=== PATIENT | female | born 1940 | race Caucasian/White ===

== ENCOUNTER 2016-05-10 11:37 | Emergency (ER) | payer BC ==
[2016-05-10 11:45] VITALS: TEMP 97.9
--- NOTE | 2016-05-10 13:05 | EDPHY ---
H & P Stated Complaint: Fell yesterday in [place]. Left foot swelling and painful. Time Seen by Provider: 05/10/16 12:11 HPI/ROS: CHIEF COMPLAINT: Left foot pain, mild head injury, syncope HISTORY OF PRESENT ILLNESS: The patient presents to the ED with complaints of acute left foot pain after she fell yesterday after a syncopal event. The patient did strike her head sustaining a small bruise to the lateral aspect of her left eye. She complains only of left foot pain today and specifically denies headache, neurologic complaints, visual complaints or neck pain. The patient is not anticoagulated. She has had some pain with ambulation. The patient denies additional injury. REVIEW OF SYSTEMS: A comprehensive 10 point review of systems is otherwise negative aside from elements mentioned in the history of present illness. Source: Patient Exam Limitations: No limitations - Personal History Current Tetanus Diphtheria and Acellular Pertussis (TDAP): Yes Tetanus Vaccine Date: 2013 - Medical/Surgical History Hx Asthma: No Hx Chronic Respiratory Disease: No Hx Diabetes: No Hx Cardiac Disease: Yes Hx Renal Disease: No Hx Cirrhosis: No Hx Alcoholism: No Hx HIV/AIDS: No Hx Splenectomy or Spleen Trauma: No Other PMH: parkinson's, HTN, irregular heart beat - Social History Smoking Status: Never smoked - Physical Exam Exam: General Appearance: Alert, no distress Head: Superficial bruising noted along the lateral aspect of the left eyelid Eyes: Pupils equal, round, reactive ENT, Mouth: No hemotympanum, no oral trauma Neck: Nontender, trachea midline Respiratory: No chest wall tender, subcutaneous air, lungs clear bilaterally Cardiovascular: Regular rate and rhythm Abdomen: Abdomen is soft and nontender, pelvis stable Skin: No lacerations, No abrasion Back: No midline T/L/S pain Extremities: Tenderness to palpation, soft tissue swelling along the midfoot Neurological: A&Ox3, normal motor function, normal sensory exam Constitutional: Initial Vital Signs Temperature (C) 36.6 C 05/10/16 11:41 Heart Rate 62 05/10/16 11:41 Respiratory Rate 17 05/10/16 11:41 Blood Pressure 154/86 H 05/10/16 11:41 O2 Sat (%) 97 05/10/16 11:41 O2 Delivery Mode Room Air Allergies/Adverse Reactions: No Known Allergies Allergy (Unverified 11/10/11 17:14) Home Medications: Medication Instructions Recorded Triamterene [Dyrenium] 100 mg PO DAILY 09/07/11 Bisacodyl [Dulcolax] 5 - 15 mg PO DAILY 11/10/11 Calcium Carbonate [Oyster Shell 500 mg PO DAILY 11/10/11 Calcium 500 mg (*)] Cholecalciferol Vit D3 [Vitamin D3 2,000 units PO DAILY 11/10/11 2000 units] Sertraline HCl [Zoloft 100mg (*)] 100 mg PO DAILY 11/10/11 Aspirin [Aspirin 81mg (OTC)] 81 mg PO DAILY #100 tab 11/12/11 Medical Decision Making - Diagnostics EKG Interpretation: EKG: Complete interpretation has been separately recorded in the [facility] archive. Summary impression: Sinus rhythm Imaging: Foot x-ray: ED Course/Re-evaluation: The patient presents to the ED primarily for evaluation of a left foot injury. She is noted to have fractures at the base of the 2nd and 3rd metatarsal which are nondisplaced. Patient did have some mild bruising to the lateral aspect of her left eyelid however has a normal GCS and no complaints of headache, neck pain or acute neurologic complaints. The patient did not require a CT scan of her head based upon clinical presentation. The patient did experience a syncopal episode yesterday which sounds to be vasovagal in nature. Given the patient's history of syncope, an EKG was performed in the ED which demonstrates a normal sinus rhythm. The patient will be placed in a Kidd boot and given crutches. She is referred to the look out tower fire watcher at [facility] for further evaluation. Differential Diagnosis: Differential diagnosis considered includes fracture, sprain, dislocation, arrhythmia, vasovagal episode, intracranial hemorrhage Departure - Departure Disposition: Home, Routine, Self-Care Clinical Impression: Fractured metatarsal bone Qualifiers: Encounter type: initial encounter Metatarsal bone: third Fracture type: closed Fracture alignment: nondisplaced Laterality: left Qualified Code(s): S92.335A - Nondisplaced fracture of third metatarsal bone, left foot, initial encounter for closed fracture Condition: Good Instructions: Foot Fracture in Adults (ED) Additional Instructions: 1. Kidd boot and crutches as needed for comfort and support. 2. Please follow up with the look out tower fire watcher at [facility] you have been referred to. Referrals: Anderson Encarnacion DPM [Doctor of Podiatric Medicine] - As per Instructions
--- NOTE | 2016-05-10 13:22 | CPEKG ---
Heart Rate: 61 RR Interval: 984 P-R Interval: 176 QRSD Interval: 92 QT Interval: 468 QTC Interval: 472 P [place]: 9 QRS [place]: -47 T Wave [place]: 25 EKG Severity - ABNORMAL ECG - EKG Impression: SINUS RHYTHM EKG Impression: LEFT ANTERIOR FASCICULAR BLOCK Electronically Signed By: Tanmay Hyde 10-May-2016 15:01:17
[2016-05-10 13:50] VITALS: BP 154/98; PULSE 66; RESP 20; O2SAT 96
== END 2016-05-10 13:57 | disposition home or self-care (01) ==
DX: S92.335A Nondisplaced fracture of third metatarsal bone, left foot, initial encounter for closed fracture (principal); I10 Essential (primary) hypertension; G20 Parkinson's disease; Z79.82 Long term (current) use of aspirin; W18.09XA Striking against other object with subsequent fall, initial encounter
CPT/HCPCS: L4386

== ENCOUNTER → 2016-06-06 | Outpatient (CLI) | payer BC | LOC: BMCIMAGING 12:58 | PROVIDERS: ATTEND Podiatrist Foot & Ankle Surgery | DX: S92.325D Nondisplaced fracture of second metatarsal bone, left foot, subsequent encounter for fracture with routine healing (principal); S92.335D Nondisplaced fracture of third metatarsal bone, left foot, subsequent encounter for fracture with routine healing; S92.345D Nondisplaced fracture of fourth metatarsal bone, left foot, subsequent encounter for fracture with routine healing ==

== ENCOUNTER → 2016-06-20 | Outpatient (CLI) | payer BC | LOC: BMCIMAGING 08:13 | PROVIDERS: ATTEND Podiatrist Foot & Ankle Surgery | DX: S92.325D Nondisplaced fracture of second metatarsal bone, left foot, subsequent encounter for fracture with routine healing (principal); S92.332D Displaced fracture of third metatarsal bone, left foot, subsequent encounter for fracture with routine healing; S92.342D Displaced fracture of fourth metatarsal bone, left foot, subsequent encounter for fracture with routine healing ==

== ENCOUNTER → 2016-12-10 | Outpatient (CLI) | payer BC | LOC: BMCIMAGING 13:46 | PROVIDERS: ATTEND Nurse Practitioner Adult Health | DX: K59.00 Constipation, unspecified (principal) ==

== ENCOUNTER → 2017-06-28 | Outpatient (CLI) | payer BC | LOC: FIMAGING 18:41 | DX: M48.062 Spinal stenosis, lumbar region with neurogenic claudication (principal); M54.16 Radiculopathy, lumbar region; M51.26 Other intervertebral disc displacement, lumbar region ==

== ENCOUNTER 2018-01-25 19:53 | Emergency (ER) | payer BC ==
[2018-01-25] MEDS ORDERED: NS 1,000 ML IV ONE (20:01)
--- NOTE | 2018-01-25 20:03 | EDPHY ---
H & P Time Seen by Provider: 01/25/18 19:54 HPI/ROS: CHIEF COMPLAINT: Syncope HISTORY OF PRESENT ILLNESS: Patient is a 77-year-old female who had a syncopal episode today at dinner. She states that she had a very active day and went to 2 concerts and had not eaten all day and had not had much to drink. She also had been taking her Parkinson's medication on an empty stomach. She states that this has caused her to faint several times before. She also has a history of paroxysmal atrial fibrillation but does not take any anticoagulants. Her friend is here and states that she slumped over in the seat and did not fall to the ground. They held her up in the seat and she was minimally responsive for several minutes. After several minutes she recovered. No seizure-like activity. No trauma. Patient denies any history of cardiac disease other than the atrial fibrillation. She states that she now feels completely better. When paramedics arrived tried glucose is normal and her systolic with blood pressure was greater than 100. Severity: Moderate Modifying factors: Resolved REVIEW OF SYSTEMS: Constitutional: denies: chills, fever, recent illness, recent injury EENTM: denies: blurred vision, double vision, nose congestion Respiratory: denies: cough, shortness of breath Cardiac: See HPI denies chest pain or palpitations Gastrointestinal/Abdominal: denies: abdominal pain, diarrhea, nausea, vomiting, blood streaked stools Genitourinary: denies: dysuria, frequency, hematuria, pain Musculoskeletal: denies: joint pain, muscle pain Skin: denies: lesions, rash, jaundice, bruising Neurological: denies: headache, numbness, paresthesia, tingling, dizziness, weakness Hematologic/Lymphatic: denies: blood clots, easy bleeding, easy bruising Immunologic/allergic: denies: HIV/AIDS, transplant 10 systems reviewed and negative except as noted EXAM: GENERAL: Well-appearing, well-nourished and in no acute distress. HEAD: Atraumatic, normocephalic. EYES: Pupils equal round and reactive to light, extraocular movements intact, sclera anicteric, conjunctiva are normal. ENT: TMs normal, nares patent, oropharynx clear without exudates. Moist mucous membranes. NECK: Normal range of motion, supple without lymphadenopathy or JVD. LUNGS: Breath sounds clear to auscultation bilaterally and equal. No wheezes rales or rhonchi. HEART: Regular rate and rhythm without murmurs, rubs or gallops. ABDOMEN: Soft, nontender, normoactive bowel sounds. No guarding, no rebound. No masses appreciated. BACK: No CVA tenderness, no spinal tenderness, step-offs or deformities EXTREMITIES: Normal range of motion, no pitting or edema. No clubbing or cyanosis. NEUROLOGICAL: Cranial nerves II through XII grossly intact. Normal speech, normal gait. 5/5 strength, normal movement in all extremities, normal sensation , normal reflexes PSYCH: Normal mood, normal affect. SKIN: Warm, dry, normal turgor, no visible rashes or lesions. Source: Patient, EMS Exam Limitations: No limitations - Personal History Tetanus Vaccine Date: 2013 - Medical/Surgical History Hx Asthma: No Hx Chronic Respiratory Disease: No Hx Diabetes: No Hx Cardiac Disease: Yes Hx Renal Disease: No Hx Cirrhosis: No Hx Alcoholism: No Hx HIV/AIDS: No Hx Splenectomy or Spleen Trauma: No Other PMH: parkinson's, HTN, irregular heart beat - Family History Significant Family History: No pertinent family hx - Social History Smoking Status: Never smoked Alcohol Use: Sober Drug Use: None Constitutional: Initial Vital Signs Temperature (C) 36.5 C 01/25/18 20:03 Heart Rate 74 01/25/18 20:03 Respiratory Rate 18 01/25/18 20:03 Blood Pressure 113/72 01/25/18 20:03 O2 Sat (%) 93 01/25/18 20:03 O2 Delivery Mode Room Air Allergies/Adverse Reactions: No Known Allergies Allergy (Verified 01/25/18 20:01) Home Medications: Medication Instructions Recorded [place] 01/25/18 Medical Decision Making - Diagnostics EKG Interpretation: An EKG obtained and was read and documented in trace view. Please see trace view for full reading and report. Sinus rhythm, no acute ischemic changes, unchanged from previous ED Course/Re-evaluation: 8:30 p.m. The patient continues to do well. Her sodium is slightly low. The patient is aware of this and has had this problem before although her most recent measurements were normal. She is not sure exactly why. We discussed salt ingestion compared to free water. She says that in the past she has been told to eat more salt. She states that this is great because she loves potato chips. She had recently been watching her salt intake. We did offer admission primarily because of her age in his ridge fibrillation. The patient declines this. We discussed indications for returning to the emergency department. Her friend will be with her. Differential Diagnosis: Partial list of the Differential diagnosis considered include but were not limited to; vasovagal syncope, dehydration, hypoglycemia, electrolyte abnormality, arrhythmia, medication reaction and although unlikely based on the history and physical exam, I also considered infection, seizure,, acute coronary disease, head injury, CVA. I discussed these differential diagnoses and the plan with the patient as well as the usual and expected course. The patient understands that the diagnosis is provisional and that in medicine we are not always correct and that further workup is often warranted. Usual and customary warnings were given. All of the patient's questions were answered. The patient was instructed to return to the emergency department should the symptoms at all worsen or return, otherwise to followup with the physician as we discussed. - Data Points Laboratory Results: Laboratory Results 01/25/18 20:00 01/25/18 20:00 01/25/18 01/25/18 01/25/18 20:03 20:00 20:00 WBC RBC Hgb Hct MCV MCH MCHC RDW Plt Count MPV Neut % (Auto) Lymph % (Auto) [place] % (Auto) Eos % (Auto) Baso % (Auto) Nucleat RBC Rel Count Absolute Neuts (auto) Absolute Lymphs (auto) Absolute Monos (auto) Absolute Eos (auto) Absolute Basos (auto) Absolute Nucleated RBC Immature Gran % Immature Gran # PT 12.1 SEC SEC (12.0-15.0) INR 0.87 (0.83-1.16) APTT 22.7 SEC L SEC (23.0-38.0) Sodium 129 mEq/L L mEq/L (135-145) Potassium 3.8 mEq/L mEq/L (3.5-5.2) Chloride 95 mEq/L L mEq/L (97-110) Carbon Dioxide 23 mEq/l mEq/l (22-31) Anion Gap 11 mEq/L mEq/L (6-14) BUN 24 mg/dL H mg/dL (7-23) Creatinine 0.9 mg/dL mg/dL (0.6-1.0) Estimated GFR > 60 Glucose 133 mg/dL H mg/dL (70-100) Calcium 9.1 mg/dL mg/dL (8.5-10.4) POC Troponin I 0.01 ng/mL ng/mL (0.00-0.08) 01/25/18 20:00 WBC 5.67 10^3/uL 10^3/uL (3.80-9.50) RBC 3.75 10^6/uL L 10^6/uL (4.18-5.33) Hgb 12.6 g/dL g/dL (12.6-16.3) Hct 37.2 % L % (38.0-47.0) MCV 99.2 fL fL (81.5-99.8) MCH 33.6 pg pg (27.9-34.1) MCHC 33.9 g/dL g/dL (32.4-36.7) RDW 12.7 % % (11.5-15.2) Plt Count 366 10^3/uL 10^3/uL (150-400) MPV 8.9 fL fL (8.7-11.7) Neut % (Auto) 60.3 % % (39.3-74.2) Lymph % (Auto) 29.3 % % (15.0-45.0) [place] % (Auto) 9.2 % % (4.5-13.0) Eos % (Auto) 0.5 % L % (0.6-7.6) Baso % (Auto) 0.5 % % (0.3-1.7) Nucleat RBC Rel Count 0.0 % % (0.0-0.2) Absolute Neuts (auto) 3.42 10^3/uL 10^3/uL (1.70-6.50) Absolute Lymphs (auto) 1.66 10^3/uL 10^3/uL (1.00-3.00) Absolute Monos (auto) 0.52 10^3/uL 10^3/uL (0.30-0.80) Absolute Eos (auto) 0.03 10^3/uL 10^3/uL (0.03-0.40) Absolute Basos (auto) 0.03 10^3/uL 10^3/uL (0.02-0.10) Absolute Nucleated RBC 0.00 10^3/uL 10^3/uL (0-0.01) Immature Gran % 0.2 % % (0.0-1.1) Immature Gran # 0.01 10^3/uL 10^3/uL (0.00-0.10) PT INR APTT Sodium Potassium Chloride Carbon Dioxide Anion Gap BUN Creatinine Estimated GFR Glucose Calcium POC Troponin I Medications Given: Discontinued Medications Sodium Chloride (Ns) 1,000 mls @ 0 mls/hr IV EDNOW ONE; Wide Open PRN Reason: Protocol Stop: 01/25/18 20:02 Last Admin: 01/25/18 20:13 Dose: 1,000 mls Point of Care Test Results: Chemistry 01/25/18 20:03 POC Troponin I 0.01 ng/mL ng/mL (0.00-0.08) Departure - Departure Disposition: Home, Routine, Self-Care Clinical Impression: Syncope Qualifiers: Syncope type: unspecified Qualified Code(s): R55 - Syncope and collapse Condition: Fair Instructions: Syncope (ED) Referrals: Patient,NotPresent [Unknown] - As per Instructions Dorothy James NP [Non Staff and Non MD] - As per Instructions
[2018-01-25 20:16] LABS: PLATELET COUNT 366 10^3/uL (150-400)
--- NOTE | 2018-01-25 20:20 | CPEKG ---
Test Reason : OPEN Blood Pressure : / mmHG Vent. Rate : 057 BPM Atrial Rate : 057 BPM P-R Int : 175 ms QRS Dur : 119 ms QT Int : 473 ms P-R-T Axes : -03 -23 044 degrees QTc Int : 461 ms Sinus rhythm Left anterior fascicular block Confirmed by Tucker Faye ([id number]) on 01/25/2018 8:19:55 PM Referred By: Confirmed By:Tucker Faye
[2018-01-25 20:24] LABS: INR 0.87 (0.83-1.16); PROTIME(PATIENT) 12.1 SEC (12.0-15.0)
[2018-01-25 21:13] VITALS: BP 140/78
== END 2018-01-25 21:46 | disposition home or self-care (01) ==
LOC: EDUNIT#
DX: R55 Syncope and collapse (principal); E86.9 Volume depletion, unspecified; G20 Parkinson's disease; I48.0 Paroxysmal atrial fibrillation; I10 Essential (primary) hypertension
CPT/HCPCS: 84484-PO

== ENCOUNTER → 2018-03-10 | Outpatient (CLI) | payer BC | LOC: FIMAGING 17:51 | DX: M51.26 Other intervertebral disc displacement, lumbar region (principal) ==